=== PATIENT | male | born 1945 | race Caucasian/White ===

== ENCOUNTER 2017-11-13 07:28 | Outpatient (CLI) | payer OTHER | END 2017-11-13 07:42 | disposition home or self-care (01) | LOC: LAB 07:28 | DX: N18.4 Chronic kidney disease, stage 4 (severe) (principal); I12.9 Hypertensive chronic kidney disease with stage 1 through stage 4 chronic kidney disease, or unspecified chronic kidney disease; E78.4 Other hyperlipidemia; N25.81 Secondary hyperparathyroidism of renal origin ==

== ENCOUNTER 2018-03-04 07:23 | Outpatient (CLI) | payer OTHER | END 2018-03-04 07:30 | disposition home or self-care (01) | LOC: LAB 07:23 | DX: N18.4 Chronic kidney disease, stage 4 (severe) (principal); I12.9 Hypertensive chronic kidney disease with stage 1 through stage 4 chronic kidney disease, or unspecified chronic kidney disease; E78.4 Other hyperlipidemia; N25.81 Secondary hyperparathyroidism of renal origin ==

== ENCOUNTER 2018-07-15 07:07 | Outpatient (CLI) | payer OTHER | END 2018-07-15 07:18 | disposition home or self-care (01) | LOC: LAB 07:07 | DX: N18.4 Chronic kidney disease, stage 4 (severe) (principal); I12.9 Hypertensive chronic kidney disease with stage 1 through stage 4 chronic kidney disease, or unspecified chronic kidney disease; E55.9 Vitamin D deficiency, unspecified; E78.49 Other hyperlipidemia ==

== ENCOUNTER 2018-10-28 07:27 | Outpatient (CLI) | payer OTHER | END 2018-10-28 07:36 | disposition home or self-care (01) | LOC: LAB 07:27 | DX: N18.4 Chronic kidney disease, stage 4 (severe) (principal); I12.9 Hypertensive chronic kidney disease with stage 1 through stage 4 chronic kidney disease, or unspecified chronic kidney disease; E78.49 Other hyperlipidemia ==

== ENCOUNTER → 2019-03-05 07:25 | Outpatient (CLI) | payer OTHER | END | disposition home or self-care (01) | LOC: LAB 07:25 | DX: N40.0 Benign prostatic hyperplasia without lower urinary tract symptoms (principal); N25.81 Secondary hyperparathyroidism of renal origin; E79.0 Hyperuricemia without signs of inflammatory arthritis and tophaceous disease; E78.49 Other hyperlipidemia; I12.9 Hypertensive chronic kidney disease with stage 1 through stage 4 chronic kidney disease, or unspecified chronic kidney disease; N18.4 Chronic kidney disease, stage 4 (severe) ==

== ENCOUNTER 2019-07-08 06:49 | Outpatient (CLI) | payer OTHER | END 2019-07-08 06:55 | disposition home or self-care (01) | LOC: LAB 06:49 | DX: E78.2 Mixed hyperlipidemia (principal); I12.9 Hypertensive chronic kidney disease with stage 1 through stage 4 chronic kidney disease, or unspecified chronic kidney disease; N18.4 Chronic kidney disease, stage 4 (severe) ==

== ENCOUNTER → 2019-11-03 07:06 | Outpatient (CLI) | payer OTHER | END | disposition home or self-care (01) | LOC: LAB 07:06 | DX: I11.9 Hypertensive heart disease without heart failure (principal); E78.2 Mixed hyperlipidemia; N25.81 Secondary hyperparathyroidism of renal origin; N18.4 Chronic kidney disease, stage 4 (severe) ==

== ENCOUNTER 2020-03-02 07:32 | Outpatient (CLI) | payer OTHER | END 2020-03-02 07:37 | disposition home or self-care (01) | LOC: LAB 07:32 | PROVIDERS: ATTEND Internal Medicine Nephrology | DX: N18.4 Chronic kidney disease, stage 4 (severe) (principal); I12.9 Hypertensive chronic kidney disease with stage 1 through stage 4 chronic kidney disease, or unspecified chronic kidney disease; E78.2 Mixed hyperlipidemia; E79.0 Hyperuricemia without signs of inflammatory arthritis and tophaceous disease; N25.81 Secondary hyperparathyroidism of renal origin ==

== ENCOUNTER → 2020-03-15 07:43 | Outpatient (CLI) | payer OTHER | END | disposition home or self-care (01) | LOC: LAB 07:43 | PROVIDERS: ATTEND Internal Medicine Nephrology | DX: N18.4 Chronic kidney disease, stage 4 (severe) (principal) ==

== ENCOUNTER → 2020-06-22 07:09 | Outpatient (CLI) | payer OTHER | END | disposition home or self-care (01) | LOC: LAB 07:09 | PROVIDERS: ATTEND Internal Medicine Nephrology | DX: N18.4 Chronic kidney disease, stage 4 (severe) (principal); I12.9 Hypertensive chronic kidney disease with stage 1 through stage 4 chronic kidney disease, or unspecified chronic kidney disease; E78.2 Mixed hyperlipidemia; E79.0 Hyperuricemia without signs of inflammatory arthritis and tophaceous disease; N25.81 Secondary hyperparathyroidism of renal origin ==

== ENCOUNTER 2020-11-01 06:52 | Outpatient (CLI) | payer OTHER | END 2020-11-01 07:06 | disposition home or self-care (01) | LOC: LAB 06:52 | PROVIDERS: ATTEND Internal Medicine Nephrology | DX: N18.4 Chronic kidney disease, stage 4 (severe) (principal); E78.2 Mixed hyperlipidemia; I12.9 Hypertensive chronic kidney disease with stage 1 through stage 4 chronic kidney disease, or unspecified chronic kidney disease; E79.0 Hyperuricemia without signs of inflammatory arthritis and tophaceous disease ==

== ENCOUNTER → 2021-03-14 | Outpatient (CLI) | payer OTHER | END | disposition home or self-care (01) | LOC: LAB 07:16 | PROVIDERS: ATTEND Internal Medicine Nephrology | DX: I12.9 Hypertensive chronic kidney disease with stage 1 through stage 4 chronic kidney disease, or unspecified chronic kidney disease (principal); N18.4 Chronic kidney disease, stage 4 (severe); E78.2 Mixed hyperlipidemia; N25.81 Secondary hyperparathyroidism of renal origin ==

== ENCOUNTER → 2021-08-08 06:37 | Outpatient (CLI) | payer OTHER | END | disposition home or self-care (01) | LOC: LAB 06:37 | PROVIDERS: ATTEND Internal Medicine Nephrology | DX: I12.9 Hypertensive chronic kidney disease with stage 1 through stage 4 chronic kidney disease, or unspecified chronic kidney disease (principal); E78.2 Mixed hyperlipidemia; N25.89 Other disorders resulting from impaired renal tubular function; N18.4 Chronic kidney disease, stage 4 (severe) ==

== ENCOUNTER 2021-11-22 06:27 | Outpatient (CLI) | payer OTHER | END 2021-11-22 06:28 | disposition home or self-care (01) | LOC: LAB 06:27 | PROVIDERS: ATTEND Internal Medicine Nephrology | DX: I12.9 Hypertensive chronic kidney disease with stage 1 through stage 4 chronic kidney disease, or unspecified chronic kidney disease (principal); N18.4 Chronic kidney disease, stage 4 (severe); E78.2 Mixed hyperlipidemia; E79.0 Hyperuricemia without signs of inflammatory arthritis and tophaceous disease ==

== ENCOUNTER → 2022-03-28 06:21 | Outpatient (CLI) | payer OTHER | END | disposition home or self-care (01) | LOC: LAB 06:21 | PROVIDERS: ATTEND Internal Medicine Nephrology | DX: I12.9 Hypertensive chronic kidney disease with stage 1 through stage 4 chronic kidney disease, or unspecified chronic kidney disease (principal); N18.4 Chronic kidney disease, stage 4 (severe); E78.2 Mixed hyperlipidemia; N25.81 Secondary hyperparathyroidism of renal origin; R73.01 Impaired fasting glucose ==

== ENCOUNTER 2022-05-09 15:56 | Outpatient (CLI) | payer OTHER | END 2022-05-09 16:18 | disposition home or self-care (01) | LOC: LAB 15:56 | PROVIDERS: ATTEND Internal Medicine Nephrology | DX: Z20.822 Contact with and (suspected) exposure to COVID-19 (principal) ==

== ENCOUNTER 2022-09-11 06:26 | Outpatient (CLI) | payer OTHER | END 2022-09-11 06:27 | disposition home or self-care (01) | LOC: LAB 06:26 | PROVIDERS: ATTEND Internal Medicine Nephrology | DX: N18.4 Chronic kidney disease, stage 4 (severe) (principal) ==

== ENCOUNTER → 2022-12-04 06:27 | Outpatient (CLI) | payer OTHER | END | disposition home or self-care (01) | LOC: LAB 06:27 | PROVIDERS: ATTEND Internal Medicine Nephrology | DX: N18.4 Chronic kidney disease, stage 4 (severe) (principal); I12.9 Hypertensive chronic kidney disease with stage 1 through stage 4 chronic kidney disease, or unspecified chronic kidney disease; N25.1 Nephrogenic diabetes insipidus; E78.2 Mixed hyperlipidemia; N40.0 Benign prostatic hyperplasia without lower urinary tract symptoms; E79.0 Hyperuricemia without signs of inflammatory arthritis and tophaceous disease ==

== ENCOUNTER → 2023-05-01 07:10 | Outpatient (CLI) | payer OTHER | END | disposition home or self-care (01) | LOC: LAB 07:10 | PROVIDERS: ATTEND Internal Medicine Nephrology | DX: I12.9 Hypertensive chronic kidney disease with stage 1 through stage 4 chronic kidney disease, or unspecified chronic kidney disease (principal); N18.4 Chronic kidney disease, stage 4 (severe); N25.81 Secondary hyperparathyroidism of renal origin; E78.2 Mixed hyperlipidemia; N40.0 Benign prostatic hyperplasia without lower urinary tract symptoms; E79.0 Hyperuricemia without signs of inflammatory arthritis and tophaceous disease ==

== ENCOUNTER 2024-04-30 06:45 | Outpatient (CLI) | payer OTHER ==
[2024-04-30 07:35] LABS: HEMOGLOBIN 13.4 g/dL (13-16.00); MEAN CELL VOLUME 101.4 fL (80.0-100.00); MEAN CORPUSCULAR HEMOGLOBIN 34.1 pg (27.00-32.0); MEAN CORPUSCULAR HGB CONC 33.6 g/dl (32.0-36.0); PLATELET COUNT 197 K/uL (150-450); RED BLOOD COUNT 3.94 M/uL (4.00-6.00); RED CELL DISTRIBUTION WIDTH 15.5 % (11.5-14.5)
[2024-04-30 07:49] LABS: PH,URINE 5.5 (5.0-8.0); URINE APPEARANCE Clear; URINE BILIRRUBIN Negative (NEGATIVE); URINE BLOOD Negative; URINE COLOR Yellow; URINE GLUCOSE Negative (NEGATIVE); URINE KETONE Negative (NEGATIVE); URINE LEUKOCYTE Negative; URINE NITRATE Negative; URINE PROTEIN 30 (NEGATIVE); URINE UROBILINOGEN 0.2 E.U./dl
[2024-04-30 08:01] LABS: URINE BACTERIA 2.5 uL (0.0-1933); URINE CAST 0.61 uL (0.0-1.40); URINE EPITHELIAL CELLS 0.6 uL (0.0-38.8); URINE RBC 0.1 uL (0.0-20.8)
[2024-04-30 08:14] LABS: ALBUMIN 3.5 gm/dL (3.4-5.0); CALCIUM 9.2 mg/dL (8.5-10.1); CHOL HDL RATIO 2.2 (0-5.0); CREATININE SERUM 3.36 mg/dL (0.70-1.30); GFR 17.8; PHOSPHOROUS 3.3 mg/dL (2.5-4.9); POTASSIUM 5.33 mEq/L (3.5-5.1)
== END 2024-04-30 06:46 | disposition home or self-care (01) ==
LOC: LAB 06:45
PROVIDERS: ATTEND Internal Medicine Nephrology
DX: N18.4 Chronic kidney disease, stage 4 (severe) (principal); I12.9 Hypertensive chronic kidney disease with stage 1 through stage 4 chronic kidney disease, or unspecified chronic kidney disease; N25.81 Secondary hyperparathyroidism of renal origin; E78.2 Mixed hyperlipidemia

== ENCOUNTER 2024-10-14 06:08 | Outpatient (CLI) | payer OTHER ==
[2024-10-14 07:41] LABS: PH,URINE 5.5 (5.0-8.0); URINE APPEARANCE Clear; URINE BILIRRUBIN Negative (NEGATIVE); URINE BLOOD Negative; URINE COLOR Yellow; URINE GLUCOSE Negative (NEGATIVE); URINE KETONE Negative (NEGATIVE); URINE LEUKOCYTE Negative; URINE NITRATE Negative; URINE PROTEIN 30 (NEGATIVE); URINE UROBILINOGEN 0.2 E.U./dl
[2024-10-14 07:45] LABS: HEMATOCRIT 38.3 % (39.0-48.0); HEMOGLOBIN 12.5 g/dL (13-16.00); MEAN CELL VOLUME 103.7 fL (80.0-100.00); MEAN CORPUSCULAR HEMOGLOBIN 33.8 pg (27.00-32.0); MEAN CORPUSCULAR HGB CONC 32.6 g/dl (32.0-36.0); PLATELET COUNT 257 K/uL (150-450); RED CELL DISTRIBUTION WIDTH 15.9 % (11.5-14.5)
[2024-10-14 08:05] LABS: URINE RBC 0.5 uL (0.0-20.8)
[2024-10-14 08:06] LABS: URINE BACTERIA 1.2 uL (0.0-1933); URINE CAST 0.14 uL (0.0-1.40); URINE EPITHELIAL CELLS 0.9 uL (0.0-38.8); URINE WBC 0.7 uL (0.0-23.2)
[2024-10-14 09:07] LABS: ALBUMIN 2.9 gm/dL (3.4-5.0); CALCIUM 9.1 mg/dL (8.5-10.1); CHOL HDL RATIO 3.1 (0-5.0); CREATININE SERUM 3.46 mg/dL (0.70-1.30); GFR 17.16; PHOSPHOROUS 3.1 mg/dL (2.5-4.9)
[2024-10-14 09:34] LABS: POTASSIUM 5.12 mEq/L (3.5-5.1)
== END 2024-10-14 06:09 | disposition home or self-care (01) ==
LOC: LAB 06:08
PROVIDERS: ATTEND Internal Medicine Nephrology
DX: N18.4 Chronic kidney disease, stage 4 (severe) (principal); I12.9 Hypertensive chronic kidney disease with stage 1 through stage 4 chronic kidney disease, or unspecified chronic kidney disease; E78.2 Mixed hyperlipidemia; N25.81 Secondary hyperparathyroidism of renal origin

== ENCOUNTER → 2025-02-23 06:09 | Outpatient (CLI) | payer OTHER ==
[2025-02-23 07:15] LABS: BASO % 0.4 % (0.1-1.2); EOS # 0.26 (0.04-0.54); EOS % 3.4 % (0.7-7.0); HEMATOCRIT 41.6 % (40.1-51.0); HEMOGLOBIN 13.5 g/dL (13.7-17.5); LYMPH # 1.54 (1.18-3.74); MEAN CORPUSCULAR HEMOGLOBIN 32.8 pg (25.6-32.2); MONO # 0.53 (0.24-0.82); MONO % 6.9 % (4.7-12.5); NEUT # 5.31 (1.56-6.13); PLATELET COUNT 190 K/uL (163-369); RED BLOOD COUNT 4.11 M/uL (4.63-6.08)
[2025-02-23 08:01] LABS: ALBUMIN 3.4 gm/dL (3.4-5.0); CALCIUM 8.6 mg/dL (8.5-10.1); CHOL HDL RATIO 1.9 (0-5.0); CREATININE SERUM 3.31 mg/dL (0.70-1.30); GFR 18.06; PHOSPHOROUS 3.6 mg/dL (2.5-4.9); POTASSIUM 4.9 mEq/L (3.5-5.1); URIC ACID 4.4 mg/dL (3.5-8.5)
== END | disposition home or self-care (01) ==
LOC: LAB 06:09
PROVIDERS: ATTEND Internal Medicine Nephrology
DX: N18.4 Chronic kidney disease, stage 4 (severe) (principal); I12.9 Hypertensive chronic kidney disease with stage 1 through stage 4 chronic kidney disease, or unspecified chronic kidney disease; E78.2 Mixed hyperlipidemia; R80.9 Proteinuria, unspecified; N25.81 Secondary hyperparathyroidism of renal origin; E79.0 Hyperuricemia without signs of inflammatory arthritis and tophaceous disease